=== PATIENT | male | born 1945 | race Caucasian/White ===

== ENCOUNTER 2016-11-28 09:08 | Day surgery (SDC) | payer OTHER ==
[2016-11-20 08:34] VITALS: BMI 25.0
--- NOTE | 2016-11-20 09:10 | PAT Medication Instructions ---
Service Date Nov 20, 2016. Current Home Medication List Ascorbic Acid (Vitamin C), 500 MG PO QAM Baclofen (Lioresal), 10 MG PO BID PRN for RN Meclizine Hcl (Meclizine Hcl), 1 TAB PO Q6H PRN for RN Multivitamin (Multivitamin), 1 TAB PO QAM Medication Instructions For Your Scheduled Surgery - Hold the following medications the morning of surgery: Multivitamin (Multivitamin), 1 TAB PO QAM Baclofen (Lioresal), 10 MG PO BID PRN for RN Ascorbic Acid (Vitamin C), 500 MG PO QAM - Take the following medications the morning of surgery with a sip of water: Meclizine Hcl (Meclizine Hcl), 1 TAB PO Q6H PRN for RN (if needed) - Take the following medications as scheduled the night before surgery: Meclizine Hcl (Meclizine Hcl), 1 TAB PO Q6H PRN for RN (if needed) Baclofen (Lioresal), 10 MG PO BID PRN for RN (if needed) If you have any questions please call us at [phone] or [phone] or [phone]
--- NOTE | 2016-11-20 09:52 | DIAGNOSTIC IMAGING REPORT ---
CHEST PREADMISSION(PA/LAT) CLINICAL HISTORY: PAT preoperative evaluation COMPARISON STUDY: 08/06/2015 FINDINGS: The bones soft tissues and hemidiaphragms are normal. The cardiomediastinal silhouette is normal. The lungs are clear. The pulmonary vasculature is normal. IMPRESSION: Negative chest. Electronically signed by: Jonathan Flores M.D. 11/20/2016 9:50 AM Dictated Date/Time: 11/20/2016 9:47 AM
[2016-11-20 10:27] LABS: BASO % 0.5 %; BASO ABS # 0.02 K/uL (0-0.2); COMPLETE YES; EOS % 1.1 %; HEMATOCRIT 40.9 % (42-52); LYMPH % 26.6 %; LYMPH ABS # 0.98 K/uL (1.2-3.4); MEAN CELL VOLUME 92.7 fL (80-100); MEAN CORPUSCULAR HGB CONC 34.5 g/dl (32-36); MEAN PLATELET VOLUME 10.4 fL (7.4-10.4); MONO % 8.1 %; NEUT % 63.7 %; PLATELET COUNT 198 K/uL (130-400); RED BLOOD COUNT 4.41 M/uL (4.7-6.1); WHITE BLOOD COUNT 3.69 K/uL (4.8-10.8)
[2016-11-20 10:30] LABS: URINE APPEARANCE CLEAR (CLEAR); URINE BILIRUBIN NEG (NEG); URINE COLOR YELLOW; URINE NITRITE NEG (NEG); URINE PH 7.5 (4.5-7.5); URINE SPECIFIC GRAVITY 1.012 (1.000-1.030); UROBILINOGEN NEG (NEG)
[2016-11-20 10:31] LABS: MANUAL MICROSCOPIC REQUIRED? NO; REVIEW REQ? NO
[2016-11-20 10:43] LABS: PARTIAL THROMBOPLASTIN RATIO 1.1; PROTHROMBIN TIME (PATIENT) 10.6 SECONDS (9.0-12.0)
[2016-11-20 10:59] LABS: BUN/CREATININE RATIO 20.7 (10-20); CALCIUM 9.1 mg/dl (8.5-10.1); POTASSIUM 4.7 mmol/L (3.5-5.1)
--- NOTE | 2016-11-27 17:46 | HISTORY & PHYSICAL EXAMINATION ---
DATE OF ADMISSION: 11/28/2016 CHIEF COMPLAINT: Evaluate low back pain that radiates down the right leg. HISTORY OF PRESENT ILLNESS: This is a 71-year-old male who has back and leg pain that has been present and longstanding. He rates his pain as 7/10. It is worse when seated. It follows an L5 distribution. He has attempted physical therapy and chiropractic treatment as well as epidural injections with no improvement. His MRI shows modest degenerative changes with moderate stenosis L3-L4 and L4-L5. There are degenerative disc changes with Modic changes at L3-L4. His quality of life is curtailed and he desires surgery. 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 PAST MEDICAL HISTORY: Hypertension, high cholesterol, migraines, enlarged prostate. PAST SURGICAL HISTORY: Heart catheterization in 1999, right knee surgery in 2000. ALLERGIES: SULFA DRUGS. MEDICATIONS: Meloxicam, baclofen, ibuprofen. SOCIAL HISTORY: The patient is , drinks occasional beer, former tobacco user, no drug use. FAMILY HISTORY: Hypertension. REVIEW OF SYSTEMS: Negative for chills, fever, malaise, weight loss, chest pain, syncope, dyspnea on exertion, coughing, depression or incontinence. PHYSICAL EXAMINATION: GENERAL: The patient stands 5 feet 9 inches tall, weighs 160 pounds. He has normal affect, answers questions appropriately. NECK: He has full cervical range of motion without discomfort. His neck shows no lymphadenopathy, thyromegaly. HEART: He has regular rate and rhythm. LUNGS: Bilateral symmetric chest excursion. The lungs are clear to auscultation bilaterally. EXTREMITIES: Reveal palpable distal pulses. Nontender hip range of motion and negative straight leg raise. He has 5/5 strength in mini motor testing of lower extremities and intact sensation to light touch in all dermatomes. He has symmetrically diminished DTRs at the patella and no clonus at the ankles. ASSESSMENT AND PLAN: The patient has L3-L4 and L4-L5 spinal stenosis. Given his ongoing symptoms and leg pain, he desires surgery. He consented to L3-5 decompression on the right. [facility]
[~2016-11-28] VITALS: Ht 175.3 cm; Wt 76.9 kg
[~2016-11-28 09:08] MED LIST: ASCO1CAP3 PO; BACL10TA PO; CEFAZOLIN 2000 MG/60 ML D5W IV SCH; LACTATED RINGER'S 1000ML 1,000 ML IV SCH; MECL1TAB42 PO; MULT-506 PO
[2016-11-28 09:31] VITALS: BP 173/101; PULSE 60; TEMP 36.4; O2SAT 94; Ht 175.3 cm; Wt 76.9 kg
--- NOTE | 2016-11-28 10:14 | History & Physical Bridge Note ---
H&P Re-Evaluation Bridge Note: I have examined the patient, reviewed the History & Physical and in the interval since the performance of the History & Physical I have noted the following changes of clinical significance: No changes noted
[2016-11-28] MEDS ORDERED: MIDAZOLAM HCL 1 MG/ML 2ML VIAL ONE (10:31)
[2016-11-28] MEDS ORDERED: FENTANYL CITRATE INJ 50 MCG/1 ML 2 ML VIAL ONE ×2 (10:31→11:00)
[2016-11-28] MEDS ORDERED: BACITRACIN 50000 UNIT VIAL ONE (10:32)
[2016-11-28] MEDS ORDERED: HEPARIN SOD (PORCINE) 1000 UNIT/ML 10 ML VIAL ONE (10:32)
[2016-11-28] MEDS ORDERED: THROMBIN FOR SOLN 20000 UNIT KIT ONE (10:32)
[2016-11-28] MEDS ORDERED: THROMBIN 5000 UNITS KIT ONE (10:32)
[2016-11-28] MEDS ORDERED: BUPIVACAINE/EPINEPHRINE 0.5% MPF 1:200,000 30 ML VIAL ONE (10:35)
[2016-11-28] MEDS ORDERED: HYDROmorphone INJ 2 MG/ML SYR/VIAL ONE (11:00)
[2016-11-28] MEDS ORDERED: PROPOFOL IV EMULSION 10 MG/ML 20 ML VIAL IV ONE (11:14)
[2016-11-28] MEDS ORDERED: ESMOLOL HCL 10 MG/ML 10 ML VIAL ONE (11:14)
[2016-11-28] MEDS ORDERED: LIDOCAINE HCL 2% 2 ML VIAL (20MG/ML) ONE (11:14)
[2016-11-28] MEDS ORDERED: EpHEDrine SULFATE 50MG/5ML SYR ONE ×2 (11:14→11:57)
[2016-11-28] MEDS ORDERED: ROCURONIUM BROMIDE 10 MG/ML 5 ML VIAL ONE (11:14)
[2016-11-28] MEDS ORDERED: DEXAMETHASONE SOD INJ 4 MG/ML VIAL ONE (11:14)
[2016-11-28] MEDS ORDERED: FENTANYL CITRATE INJ 50 MCG/1 ML 2 ML VIAL IV PRN (11:15)
[2016-11-28] MEDS ORDERED: HYDROmorphone INJ 1 MG/ML SYR IV PRN (11:15)
[2016-11-28] MEDS ORDERED: EpHEDrine SULFATE INJ 50 MG/ML AMP IV PRN (11:15)
[2016-11-28] MEDS ORDERED: ONDANSETRON INJ 2 MG/ML 2 ML VIAL IV PRN (11:15)
[2016-11-28] MEDS ORDERED: ATROPINE SULFATE 0.1 MG/ML 5ML SYR IV PRN (11:15)
[2016-11-28] MEDS ORDERED: BUPIVACAINE/EPINEPHRINE 0.5% MPF 1:200,000 30 ML VIAL INJ ONE (11:24)
[2016-11-28] MEDS: FLOSEAL HEMOSTATIC MATRIX 10ML TOP ONE ×2 (11:24→12:02)
--- NOTE | 2016-11-28 11:42 | [facility] Post Operative Brief Note ---
Immediate Operative Summary Operative Date Nov 28, 2016. Pre-Operative Diagnosis L3-L4 and L4-L5 spinal stenosis Post-Operative Diagnosis L3-L4 and L4-L5 spinal stenosis Procedure(s) Performed Right L3-L5 Decompression Surgeon Dr. Schwab [employer] Executive Surgeon(s) Chaparro Frost Estimated Blood Loss 50 ML Findings dict Specimens None per surgeon
[2016-11-28] MEDS ORDERED: OXYC-57 PO (11:43)
[2016-11-28] MEDS ORDERED: SODIUM CHLORIDE 0.9% 1000ML 1,000 ML IV SCH (11:44)
--- NOTE | 2016-11-28 11:44 | Discharge Instructions ---
Discharge Instructions Date of Service Nov 28, 2016. Admission Reason for Admission: Herniated Nucleus Pulposus Discharge Discharge Diagnosis / Problem: same Discharge Goals Goal(s): Decrease discomfort Activity Recommendations Activity Limitations: per Instructions/Follow-up section Lifting Limitations: no more than 10 pounds Exercise/Sports Limitations: until after follow-up appointment May Resume Sexual Activity: when tolerated Shower/Bathe: may shower/bathe in 3 days . Instructions / Follow-Up Instructions / Follow-Up ACTIVITY RECOMMENDATIONS: SELF CARE INSTRUCTIONS AFTER A LAMINECTOMY 1. No prolonged sitting (less than 30 minutes for the first 3 weeks after surgery). 2. No bending, lifting more than 5 pounds, or twisting (roll like a log when turning in bed). 3. You may shower 3 days after surgery if no drainage from wound. Thoroughly dry wound. Do not soak in the tub. 4. Please walk as much as you can for exercise. Gradually increase the distance that you walk as your endurance increases. 5. You may drive in 7-10 days if you are comfortable and no longer requiring pain medications. SPECIAL CARE INSTRUCTIONS: VERY IMPORTANT TO READ AND REVIEW A. Your surgical incision has been closed with a cosmetic suture under the skin that will dissolve in about 6 weeks. In 14 days, you can use a pair of clean scissors and cut the suture that is left outside of the skin at the ends of your incision. B. Complications are uncommon, but please contact us if you have any signs or symptoms of: 1. wound infection (fever higher than 102.5 degrees F, redness, separation of wound, drainage, or increasing pain from the incision) 2. blood clots in legs (pain, swelling, redness and warmth in legs) 3. urinary tract infection (fever higher than 102.5 degrees, burning upon urination or increased frequency of urination) 4. nerve problems (inability to walk on your toes or heels, numbness, loss of bowel or bladder control) 5. any other symptoms that concern you. C. Please call the office at if you have any concerns or questions about your operation or recovery. MANAGING PAIN AFTER SPINAL SURGERY 1. Narcotic medication is intended for short-term use and will be provided for surgical pain. Surgical pain usually lasts for a period of 4-6 weeks. Narcotic medication includes Percocet, Vicodin, Darvocet, Tylenol #3 or Lortab. 2. Longer-term pain is more appropriately treated with non-narcotic medication such as Tylenol ES. 3. Muscle spasm is not appropriately treated with narcotics. Muscle relaxers such as Soma, Flexeril or Skelaxin can be used along with Tylenol ES. 4. Remember that we all live with some "aches and pains". This is not unusual or uncommon after an injury or as we get older. 5. We will provide appropriate medication within the normal guidelines of their prescribed use. We will also be very cautious and aware of potential abuse and extended duration of patients' medication needs. 6. Please allow 2-3 days to process refills. Prescriptions will not be mailed but must be picked up at the office. FOLLOW UP VISIT: Keep your scheduled follow-up appointment. Any questions, please call the office at . Current Hospital Diet Patient's current hospital diet: Discharge Diet Recommended Diet: Regular Diet Procedures Procedures Performed: Right L3-L5 Decompression Pending Studies Studies pending at discharge: no Medical Emergencies . Who to Call and When: Medical Emergencies: If at any time you feel your situation is an emergency, please call 911 immediately. . Non-Emergent Contact Non-Emergency issues call your: Surgeon . "Provider Documentation" section prepared by Huang Schwab. . VTE Core Measure Inpt VTE Proph given/why not?: SCD's [place] Drug Monitoring Program Search Results: patient reviewed within database, no issues identified
[2016-11-28] MEDS ORDERED: OXYCODONE/ACETAMINOPHEN 5-325 TAB PO PRN ×2 (11:45)
[2016-11-28] MEDS ORDERED: MoRPHine SULFATE 2 MG/ML CARP IV PRN (11:45)
[2016-11-28] MEDS ORDERED: KETOROLAC TROMETHAMINE 30 MG/ML VIAL ONE (11:57)
[2016-11-28] MEDS ORDERED: NEOSTIGMINE METHYLSULFATE 1 MG/ML 10ML VIAL ONE (11:57)
[2016-11-28] MEDS ORDERED: GLYCOPYRROLATE INJ 0.2 MG/ML VIAL ONE (11:57)
[2016-11-28] MEDS ORDERED: FLOSEAL HEMOSTATIC MATRIX 5ML TOP ONE (12:01)
--- NOTE | 2016-11-28 12:07 | DIAGNOSTIC IMAGING REPORT ---
LUMBAR SPINE, INTRAOPERATIVE FLUOROSCOPY HISTORY: Laminectomy. FLUOROSCOPY TIME: 1 minute. FINDINGS: Intraoperative fluoroscopy was provided for the lumbar spine. 2 fluoroscopic spot images were obtained. IMPRESSION: Fluoroscopy provided for a lumbar laminectomy. Electronically signed by: Jonathan Flores M.D. 11/28/2016 12:06 PM Dictated Date/Time: 11/28/2016 12:05 PM
--- NOTE | 2016-11-28 12:08 | OPERATIVE REPORT ---
DATE OF OPERATION: 11/28/2016 PREOPERATIVE DIAGNOSES: 1. L3-L4 and L4-L5 spinal stenosis. 2. Right lower extremity radiculopathy. POSTOPERATIVE DIAGNOSES: Same. PROCEDURES: Right L3-L4 and L4-L5 decompressions. SURGEON: Dr. Schwab. CONTACT ASSEMBLER: Chaparro Richard PA-C. Please note he participated in all portions of the procedure and was critical for performance of the procedure. ANESTHESIA: General endotracheal anesthesia. COMPLICATIONS: None. ESTIMATED BLOOD LOSS: Minimal. PROCEDURE IN DETAIL: After identification of the patient and operative level, he was brought to the OR where he underwent induction of general anesthesia. He was then positioned prone on [facility] OR table, all bony prominences were well padded. Care was taken to avoid pressure on the periorbital area. Lumbosacral area was sterilely prepped and draped in usual fashion. Antibiotics were administered. Timeout was performed. Level was confirmed. Skin incision was localized with lateral fluoroscopy and a spinal needle. I infiltrated the skin with Marcaine and then made skin incision over spinous process of L3, L4 and L5, exposed the right L3-L4 and L4-L5 interlaminar window, and placed a socially responsible investment adviser retractor. I confirmed level with fluoroscopy and marked the operative levels and then did a decompression at each level. This was performed by creating a small laminotomy under the caudal edge of L3, removing ligamentum flavum, medial portion of facet of L3-L4, and then completed decompression with Kerrisons. I could pass the probe along the nerve root in the lateral recess at L3-L4. I confirmed this was decompressed, then placed FloSeal for hemostasis. I repeated the process at L4-L5 on the right side. I removed the caudal edge of the L4 lamina with a estella, removed the medial facet with a estella. I then completed decompression with ligamentum flavum removal and undercutting the facet with Kerrisons. I then palpated the nerve roots decompressed at L4-L5 and lateral recess. I then applied FloSeal for hemostasis. I irrigated, confirmed hemostasis, then closed in layered fashion over ANGELA drain. All sponge and needle counts were correct at the end of the case. I attest to the content of the Intraoperative Record and any orders documented therein. Any exception s are noted below.
--- NOTE | 2016-11-28 12:43 | Anesthesiology Progress Note ---
Anesthesia Post Op Note Date & Time Nov 28, 2016 at 12:43 Vital Signs Pain Intensity: 3 Vital Signs Past 12 Hours Date Time Temp Pulse Resp B/P (MAP) Pulse Ox O2 Delivery O2 Flow Rate FiO2 11/28/16 12:40 54 12 126/75 92 Room Air 11/28/16 12:30 36.0 54 17 123/75 93 Room Air 11/28/16 12:20 56 10 118/77 92 Room Air 11/28/16 12:10 61 14 135/83 96 Room Air 11/28/16 12:00 36 58 16 135/83 99 Oxymask 11 11/28/16 11:51 36 72 16 137/83 97 Oxymask 11 11/28/16 09:31 36.4 60 20 173/101 (125) 94 Room Air Notes Mental Status: alert / awake / arousable, participated in evaluation Pt Amnestic to Procedure: Yes Nausea / Vomiting: adequately controlled Pain: adequately controlled Airway Patency, RR, SpO2: stable & adequate BP & HR: stable & adequate Hydration State: stable & adequate Anesthetic Complications: no major complications apparent
[2016-11-28 13:45] VITALS: BP 148/93; PULSE 58; TEMP 36.3; O2SAT 93
== END 2016-11-28 14:15 | disposition home or self-care (01) ==
LOC: C.ACU 09:08
PROVIDERS: ATTEND Orthopaedic Surgery Orthopaedic Surgery of the Spine
DX: M48.06 Spinal stenosis, lumbar region (principal); I10 Essential (primary) hypertension; E78.00 Pure hypercholesterolemia, unspecified; Z79.899 Other long term (current) drug therapy